=== PATIENT | male | born 1970 | race Caucasian/White ===

== ENCOUNTER 2017-02-12 17:15 | Emergency (ER) | payer OTHER ==
[~2017-02-12] VITALS: Ht 182.9 cm; Wt 77.2 kg
[2017-02-12 18:48] LABS: HEMATOCRIT 44.8 % (38.0-50.0); MCV 94.1 FL (86-99); PLATELET COUNT 162 K/uL (156-360); RBC DIS.WIDTH-CV 12.5 % (11.8-14.6); RBC DIS.WIDTH-SD 43.8 % (39-53); RED BLOOD COUNT 4.76 M/uL (4.00-5.50); WHITE BLOOD COUNT 10.7 K/uL (4.1-10.2)
[2017-02-12 18:56] LABS: CHLORIDE 108 mEq/L (99-109); POTASSIUM 4.9 mEq/L (3.7-5.4); SODIUM 142 mEq/L (136-147)
[2017-02-12 18:58] LABS: GLUCOSE 148 mg/dL (70-99)
[2017-02-12 18:59] LABS: ANION GAP 10 MEQ/L (2-14)
[2017-02-12 19:01] LABS: SERUM ETHYL ALCOHOL < 10 mg/dL
[2017-02-12 19:02] LABS: GFR ESTIMATE (CALCULATED) > 59 mL/min/
[2017-02-12 19:03] LABS: UREA NITROGEN (BUN) 13 mg/dL (9-23)
[2017-02-12 19:05] LABS: SALICYLATE < 5.0 MG/DL (15-30)
[2017-02-12 21:00] LABS: ADD MIUA? YES; BILIRUBIN NEGATIVE; BLOOD NEGATIVE; COLOR YELLOW ((YELLOW)); GLUCOSE (STRIP) NEGATIVE; KETONES 5; LEUKOCYTES NEGATIVE; NITRITE NEGATIVE; PROTEIN (STRIP) 30; SPECIFIC GRAVITY 1.023 (1.000-1.030)
[2017-02-12 21:09] LABS: AMPHETAMINE NEGATIVE (500 ng/mL); BARBITURATES NEGATIVE (200 ng/mL); BENZODIAZEPINES NEGATIVE (150 ng/mL); COCAINE NEGATIVE (150 ng/mL); INTERNAL CONTROLS VALID? YES; METHADONE NEGATIVE (200 ng/mL); METHAMPHETAMINE NEGATIVE (500 ng/mL); OPIATES (MORPHINE) NEGATIVE (100 ng/mL); OXYCODONE NEGATIVE (100 ng/mL); PHENCYCLIDINE NEGATIVE (25 ng/mL); PROPOXYPHENE NEGATIVE (300 ng/mL); THC CANNABINOIDS PRESUMPTIVE POSITIVE (50 ng/mL); TRICYCLIC ANTIDEPRESSANTS NEGATIVE (300 ng/mL)
[2017-02-12 21:10] LABS: ADD MEDTOX COMMENT Y
[2017-02-12 21:12] LABS: BACTERIA NONE SEEN /HPF; EPITHELIAL CELLS NONE SEEN /HPF; HYALINE CASTS 0-5 /LPF; MUCUS TRACE /LPF; UCUL ADDED? NO; WHITE BLOOD CELLS 0-5 /HPF (0-5)
[2017-02-12 22:10] VITALS: BP 134/78
== END 2017-02-12 22:11 ==
LOC: EME 17:15
PROVIDERS: Emergency Medicine
DX: F31.4 Bipolar disorder, current episode depressed, severe, without psychotic features (principal); R45.851 Suicidal ideations; F17.200 Nicotine dependence, unspecified, uncomplicated
CPT/HCPCS: 80048; 80178; 81003; 84999; 85027; 90837; 99281; 99285; G0480